=== PATIENT | male | born 1935 | race Two or more races ===

== ENCOUNTER 2023-09-24 20:08 | Emergency (ER) | payer OTHER ==
[~2023-09-24] VITALS: Ht 180.3 cm; Wt 65.3 kg
[~2023-09-24 20:08] MED LIST: ALTACE5 MG PO; AMLODIPINE BESY10 MG PO; AVAPRO150 MG PO; COZAAR100 MG PO; HYDRALAZINE HCL50 MG PO; LIPITOR20 MG PO; LIPITOR40 M1 PO; LIPITOR40 MG PO; LOVAZA1 G PO; NEXIUM5 MG; NORVASC5 MG PO; PAROXETINE HCL10 MG PO; PAXIL20 MG; PROTONIX40 M1 PO; TRILIPIX45 MG PO; ZEBETA10 MG PO
== END 2023-09-24 22:35 | disposition home or self-care (01) ==
LOC: ER 20:08
DX: S51.012A Laceration without foreign body of left elbow, initial encounter (principal); X58.XXXA Exposure to other specified factors, initial encounter; Y93.9 Activity, unspecified; Y92.9 Unspecified place or not applicable; Y99.9 Unspecified external cause status